=== PATIENT | male | born 1985 | race Two or more races ===

== ENCOUNTER 2016-12-14 20:32 | Emergency (ER) | payer BC ==
[~2016-12-14] VITALS: Ht 170.2 cm; Wt 86.2 kg
[2016-12-14] MEDS ORDERED: TRAMADOL HCL 50 MG TABLET PO ONE (21:30)
[2016-12-14] MEDS ORDERED: TRAMADOL HCL 50 MG TABLET ONE (21:51)
[2016-12-14 22:36] VITALS: BP 139/84
== END 2016-12-14 23:10 | disposition home or self-care (01) ==
LOC: ER 20:37
DX: S09.90XA Unspecified injury of head, initial encounter (principal); G91.9 Hydrocephalus, unspecified; Z88.6 Allergy status to analgesic agent; Z98.2 Presence of cerebrospinal fluid drainage device; Y08.89XA Assault by other specified means, initial encounter; Y93.89 Activity, other specified; Y92.89 Other specified places as the place of occurrence of the external cause; Y99.8 Other external cause status
CPT/HCPCS: 70450; 99284; A4606; Z7610

== ENCOUNTER 2016-12-15 13:09 | Emergency (ER) | payer BC ==
[~2016-12-15] VITALS: Ht 170.2 cm; Wt 83.9 kg
[2016-12-15 15:13] LABS: BASOPHILS # (AUTO) 0.1 /CMM (0.0-0.2); DIFF TOTAL % 100 %; EOSINOPHILS # (AUTO) 0.1 /CMM (0.0-0.7); EOSINOPHILS % (AUTO) 0.7 % (0.0-6.0); HEMATOCRIT 54 % (39-51); HEMOGLOBIN 17.6 g/dL (13.5-17.5); LYMPHOCYTES # (AUTO) 1.7 /CMM (0.8-4.8); LYMPHOCYTES % (AUTO) 20.4 % (20.0-44.0); MEAN CORPUSCULAR HEMOGLOBIN 29 PG (26.0-33.0); MEAN CORPUSCULAR HGB CONC 33 g/dl (31.0-36.0); MEAN CORPUSCULAR VOLUME 88 fL (80-96); MONOCYTES # (AUTO) 0.4 /CMM (0.1-1.30); MONOCYTES % (AUTO) 4.9 % (2.0-12.0); NEUTROPHILS # (AUTO) 5.9 /CMM (1.8-8.9); PLATELET COUNT (AUTO) 275 /CMM (150-450); RED BLOOD CELL COUNT(AUTO) 6.07 MIL/uL (4.5-6.0); WHITE BLOOD COUNT (AUTO) 8.2 K/uL (4.3-11.0)
[2016-12-15 15:25] LABS: CALCIUM, SERUM 9.2 mg/dL (8.5-10.1); CREATININE 0.8 mg/dL (0.6-1.3)
[2016-12-15 15:27] LABS: INR 1.05 (0.87-1.13)
[2016-12-15 15:30] LABS: ALBUMIN 4.1 g/dL (3.4-5.0); BILIRUBIN,DIRECT 0.1 mg/dL (0.0-0.2); BILIRUBIN,TOTAL 0.4 mg/dL (0.2-1.0); INDIRECT BILIRUBIN 0.3 mg/dL (0.0-1.1)
[2016-12-15] MEDS ORDERED: IV NS 0.9% 1,000 ML BAG IV ONE (16:00)
[2016-12-15] MEDS ORDERED: IV SET PRIMARY 1 EA INFUS.SET MC ONE (16:20)
[2016-12-15] MEDS ORDERED: IV NS 0.9% 1,000 ML ONE (16:20)
[2016-12-15] MEDS ORDERED: ACETAMINOPHEN ES 500 MG TABLET ONE (16:36)
[2016-12-15] MEDS ORDERED: ACETAMINOPHEN 325 MG TABLET PO ONE (17:00)
[2016-12-15 19:33] VITALS: BP 127/72
== END 2016-12-15 20:44 | disposition short-term general hospital (02) ==
LOC: ER 13:11
DX: S09.90XA Unspecified injury of head, initial encounter (principal); G91.9 Hydrocephalus, unspecified; Z98.2 Presence of cerebrospinal fluid drainage device; Z88.6 Allergy status to analgesic agent; F07.81 Postconcussional syndrome; R79.1 Abnormal coagulation profile; Y04.2XXA Assault by strike against or bumped into by another person, initial encounter; Y93.89 Activity, other specified; Y92.89 Other specified places as the place of occurrence of the external cause; Y99.9 Unspecified external cause status
CPT/HCPCS: 36415; 80048-TC; 80076-TC; 85025-TC; 85730-TC; A4606; J7030; Z7610

== ENCOUNTER 2019-09-24 14:31 | Emergency (ER) | payer BC, OTHER ==
[~2019-09-24] VITALS: Ht 170.2 cm; Wt 86.2 kg
[2019-09-24 14:39] VITALS: BP 160/85
--- NOTE | 2019-09-24 15:28 | NUR ---
Patient discharged to home in stable condition. Written and verbal after care instructions given. Patient verbalizes understanding of instruction.
== END 2019-09-24 15:30 | disposition home or self-care (01) ==
LOC: ER 14:36
DX: M54.5 Low back pain (principal); Z88.5 Allergy status to narcotic agent; Z98.890 Other specified postprocedural states; W20.8XXA Other cause of strike by thrown, projected or falling object, initial encounter; Y93.89 Activity, other specified; Y92.413 State road as the place of occurrence of the external cause; Y99.8 Other external cause status